=== PATIENT | male | born 1985 | race Caucasian/White ===

== ENCOUNTER 2022-09-05 11:59 | Emergency (ER) | payer MEDICAID ==
[~2022-09-05] VITALS: Ht 177.8 cm; Wt 127.0 kg
[~2022-09-05 11:59] MED LIST: IBUP-2029 MT; TRAM50TA3 MT
[2022-09-05] MEDS ORDERED: LORAZEPAM 2MG/ML CPJ IM ONE (12:45)
[2022-09-05] MEDS ORDERED: HALOPERIDOL LACTATE 5MG/ML VIAL IM ONE (12:45)
[2022-09-05 13:01] LABS: BASOPHILS % 0.7 % (0.0-2.0); EOSINOPHILS % 0.6 % (0.0-5.0); HEMATOCRIT. 49.4 % (42.0-52.0); HEMOGLOBIN. 16.7 g/dL (14.0-18.0); LYMPHOCYTES % 25.6 % (20.0-50.0); MEAN CORPUSCULAR HEMOGLOBIN 30.2 pg (28.0-32.0); MEAN CORPUSCULAR VOLUME 89.4 fL (80.0-94.0); MONOCYTES % 8.4 % (2.0-8.0); NEUTROPHILS % 64.7 % (40.0-76.0); PLATELET 236 x1000/uL (130-400); RED BLOOD CELL COUNT 5.52 mill/uL (4.7-6.1); RED CELL DISTRIBUTION WIDTH 15.1 % (11.6-14.6)
[2022-09-05 13:09] LABS: CHLORIDE 106 mEq/L (98-107)
[2022-09-05 13:32] LABS: CLARITY URINE CLEAR (CLEAR); COLOR URINE YELLOW (YELLOW); KETONES URINE 2+ (NEGATIVE); LEUKOCYTE ESTERASE URINE NEGATIVE (NEGATIVE); NITRITE URINE NEGATIVE (NEGATIVE); OCCULT BLOOD URINE NEGATIVE (NEGATIVE); PH URINE 5.5 (4.5-8.0); PROTEIN URINE 2+ (NEGATIVE); SPECIFIC GRAVITY URINE 1.026 (1.005-1.030); UROBILINOGEN URINE 0.2 E.U./dL (0.2-1.0)
[2022-09-05 13:39] LABS: ETHANOL BLOOD 411 mg/dL
[2022-09-05 13:44] LABS: *AMPHETAMINES SCREEN URINE PRESUMTIVE POSITIVE (NEGATIVE); *BARBITURATES SCREEN URINE NEGATIVE (NEGATIVE); *BENZODIAZEPINES SCREEN URINE NEGATIVE (NEGATIVE); *COCAINE SCREEN URINE NEGATIVE (NEGATIVE); CANNABINOID URINE SCREEN NEGATIVE (NEGATIVE); METHADONE URINE SCREEN NEGATIVE (NEGATIVE); OPIATES URINE SCREEN NEGATIVE (NEGATIVE); PHENCYCLIDINE URINE SCREEN NEGATIVE (NEGATIVE)
[2022-09-06 02:00] VITALS: BP 118/62
== END 2022-09-06 03:00 | disposition home or self-care (01) ==
LOC: ER 11:59
DX: R11.0 Nausea (principal)
CPT/HCPCS: 36415; 70450; 80053; 80305; 80307; 80320; 80329; 81003; 84443; 85025; 93005; 96372; 99291; J1630; J2060; Z7610; G0480

== ENCOUNTER 2022-09-09 17:33 | Emergency (ER) | payer MEDICAID ==
[~2022-09-09] VITALS: Ht 175.3 cm; Wt 145.0 kg
[2022-09-09 17:52] VITALS: BP 148/66
[2022-09-09] MEDS ORDERED: TETANUS, DIPHTHERIA, PERTUSSIS VAC/PF 0.5ML (>10YR OLD) IM ONE (19:00)
[2022-09-09] MEDS ORDERED: LIDOCAINE HCL/PF 1% 10 MG/ML 5ML VIAL INFIL ONE (19:00)
[2022-09-09] MEDS ORDERED: BACITRACIN ZINC OINT UDPKT TOP ONE (19:00)
[2022-09-09 19:17] LABS: BASOPHILS % 0.7 % (0.0-2.0); EOSINOPHILS % 0.3 % (0.0-5.0); HEMATOCRIT. 45.2 % (42.0-52.0); HEMOGLOBIN. 15.6 g/dL (14.0-18.0); LYMPHOCYTES % 14.4 % (20.0-50.0); MEAN CORPUSCULAR HEMOGLOBIN 30.6 pg (28.0-32.0); MEAN CORPUSCULAR VOLUME 88.8 fL (80.0-94.0); MEAN PLATELET VOLUME 7.8 fl (7.4-10.4); MONOCYTES % 5.7 % (2.0-8.0); NEUTROPHILS % 78.9 % (40.0-76.0); PLATELET 236 x1000/uL (130-400); RED BLOOD CELL COUNT 5.09 mill/uL (4.7-6.1); RED CELL DISTRIBUTION WIDTH 14.5 % (11.6-14.6)
[2022-09-09 19:37] LABS: CHLORIDE 106 mEq/L (98-107)
[2022-09-09 19:44] LABS: ETHANOL BLOOD 143 mg/dL
== END 2022-09-09 21:49 | disposition home or self-care (01) ==
LOC: ER 17:33
DX: S01.01XA Laceration without foreign body of scalp, initial encounter (principal); R51.9 Headache, unspecified; Y04.0XXA Assault by unarmed brawl or fight, initial encounter; Y93.89 Activity, other specified; Y92.89 Other specified places as the place of occurrence of the external cause; Y99.8 Other external cause status
CPT/HCPCS: 12004; 36415; 70450; 80053; 80320; 85025; 90471; 90715; 99285; J3490; Z7610; G0480

== ENCOUNTER 2022-09-09 22:28 | Emergency (ER) | payer MEDICAID | END 2022-09-10 04:30 | disposition home or self-care (01) | LOC: ER 22:28 | DX: M79.672 Pain in left foot (principal); M79.671 Pain in right foot | CPT/HCPCS: 99281 ==

== ENCOUNTER 2023-07-29 22:55 | Emergency (ER) | payer MEDICAID ==
[~2023-07-29] VITALS: Ht 175.3 cm; Wt 80.0 kg
[2023-07-29] MEDS: HALOPERIDOL LACTATE 5MG/ML VIAL IM ONE (23:20)
[2023-07-29] MEDS: LORAZEPAM 2MG/ML INJ IM ONE (23:20)
[2023-07-29] MEDS: DIPHENHYDRAMINE 50MG/ML VIAL IM ONE (23:20)
[2023-07-30 00:09] LABS: BASOPHILS % 1.4 % (0.0-2.0); DIFFERENTIAL COMMENT 0; EOSINOPHILS % 1.5 % (0.0-5.0); HEMATOCRIT. 32.2 % (42.0-52.0); HEMOGLOBIN. 11.2 g/dL (14.0-18.0); MEAN CORPUSCULAR HEMOGLOBIN 36.4 pg (28.0-32.0); MEAN CORPUSCULAR HGB CONC 34.7 g/dL (31.0-37.0); MEAN CORPUSCULAR VOLUME 104.8 fL (80.0-94.0); MEAN PLATELET VOLUME 6.6 fl (7.4-10.4); MONOCYTES % 10.3 % (2.0-8.0); NEUTROPHILS % 47.8 % (40.0-76.0); PLATELET 374 x1000/uL (130-400); RED BLOOD CELL COUNT 3.07 mill/uL (4.7-6.1); RED CELL DISTRIBUTION WIDTH 13.9 % (11.6-14.6); WHITE BLOOD COUNT 5.4 x1000/uL (4.5-11.0)
[2023-07-30 00:22] LABS: CLARITY URINE CLEAR (CLEAR); COLOR URINE YELLOW (YELLOW); GLUCOSE URINE NEGATIVE (NEGATIVE); KETONES URINE NEGATIVE (NEGATIVE); LEUKOCYTE ESTERASE URINE NEGATIVE (NEGATIVE); NITRITE URINE NEGATIVE (NEGATIVE); OCCULT BLOOD URINE NEGATIVE (NEGATIVE); PROTEIN URINE NEGATIVE (NEGATIVE); SPECIFIC GRAVITY URINE 1.014 (1.005-1.030); UROBILINOGEN URINE 0.2 E.U./dL (0.2-1.0)
[2023-07-30 00:32] LABS: *AMPHETAMINES SCREEN URINE PRESUMPTIVE POSITIVE (NEGATIVE); *BARBITURATES SCREEN URINE NEGATIVE (NEGATIVE); *BENZODIAZEPINES SCREEN URINE NEGATIVE (NEGATIVE); *COCAINE SCREEN URINE NEGATIVE (NEGATIVE); CANNABINOID URINE SCREEN NEGATIVE (NEGATIVE); ECSTASY MDMA SCREEN URINE NEGATIVE (NEGATIVE); METHADONE URINE SCREEN Neg (NEGATIVE); OPIATES URINE SCREEN NEGATIVE (NEGATIVE); PHENCYCLIDINE URINE SCREEN NEGATIVE (NEGATIVE)
[2023-07-30 00:43] LABS: ACETAMINOPHEN < 2 ug/mL (10-30); ALANINE AMINOTRANSFERASE 116 IU/L (10-49); ASPARTATE AMINOTRANSFERASE 166 IU/L (<34); BILIRUBIN TOTAL 0.4 mg/dL (0.1-1.0); CALCIUM 8.3 mg/dL (8.7-10.4); CARBON DIOXIDE 22 mEq/L (21-32); CHLORIDE 111 mEq/L (98-107); CREATININE 0.8 mg/dL (0.6-1.3); ETHANOL BLOOD 333 mg/dL (<10); GLUCOSE 86 mg/dL (70-105); POTASSIUM 3.7 mEq/L (3.5-5.1); PROTEIN TOTAL 6.8 g/dL (6.0-8.3); SODIUM 143 mEq/L (136-145); UREA NITROGEN BLOOD 20 mg/dL (9-23)
[2023-07-30 06:30] VITALS: BP 107/62; PULSE 87; RESP 18; TEMP 98.1
== END 2023-07-30 10:45 | disposition home or self-care (01) ==
LOC: ER 23:20
DX: F10.129 Alcohol abuse with intoxication, unspecified (principal); Y90.8 Blood alcohol level of 240 mg/100 ml or more
CPT/HCPCS: 80053; 80307; 80329; 80320; 85025; 36415; 96372; 99284; 80305; 81003; J1200; J1630; J2060; Z7610; G0480

== ENCOUNTER 2023-09-25 16:29 | Emergency (ER) | payer MEDICAID ==
[~2023-09-25 16:29] MED LIST changes: +TOPUD PO
== END 2023-09-25 16:44 | disposition left against medical advice (07) ==
LOC: ER 16:29
DX: F10.20 Alcohol dependence, uncomplicated (principal); Z53.21 Procedure and treatment not carried out due to patient leaving prior to being seen by health care provider; Y90.9 Presence of alcohol in blood, level not specified